=== PATIENT | female | born 1970 | race Caucasian/White ===

== ENCOUNTER 2017-07-18 16:59 | Emergency (ER) | payer OTHER ==
[~2017-07-18] VITALS: Ht 177.8 cm; Wt 108.9 kg
[~2017-07-18 16:59] MED LIST: CEPHALEXIN500 MG PO; NORCO 5-325 TA1 EACH PO; SEPTRA DS TABL1 EACH PO
== END 2017-07-18 18:26 | disposition home or self-care (01) ==
LOC: ED 16:59
DX: J11.1 Influenza due to unidentified influenza virus with other respiratory manifestations (principal); I10 Essential (primary) hypertension; F17.200 Nicotine dependence, unspecified, uncomplicated
CPT/HCPCS: 87502; 99283

== ENCOUNTER 2021-04-05 08:05 | Day surgery (SDC) | payer OTHER ==
[~2021-04-05] VITALS: Ht 175.3 cm; Wt 106.8 kg
[~2021-04-05 08:05] MED LIST changes: +COZAAR100 MG PO; +NORVASC10 MG PO; +OMEPRAZOLE20 MG PO; +WELLBUTRIN XL150 MG PO
--- NOTE | 2021-04-05 14:04 | NUR ---
PATIENT BACK IN DAY SURGERY ROOM FROM PACU. DENIES PAIN. DENIES NAUSEA. VS CHECKED. RIGHT BREAST DRESSING CDI. IV SITE WNL. SCDs ON. PATIENT TOLERATING WATER. GIVEN CHOCOLATE PUDDING. SANDWICH ORDERED. CALL LIGHT WITHIN REACH.
[2021-04-05] MEDS ORDERED: HYDROCODON-ACE1 EAC8 PO (14:10)
--- NOTE | 2021-04-05 14:42 | NUR ---
PATIENT TOLERATED PUDDING AND SANDWICH. PATIENT ASSISTED OOB AND TO BATHROOM. GAIT STEADY. VOID WITHOUT DIFFICULTY. GAIT STEADY BACK TO ROOM. PATIENT GETTING DRESSED INDEPENDENTLY.
--- NOTE | 2021-04-05 15:18 | NUR ---
1502: VS CHECKED. DISCHARGE INSTRUCTIONS GIVEN TO PATIENT. IV DC'D WNL. TIP INTACT. FRIEND HERE TO TAKE PATIENT HOME. PATIENT DISCHARGED TO HOME WITH FRIEND VIA WHEELCHAIR.
--- NOTE | 2021-04-06 06:14 | OR ---
[facility] [address] [place], [place] [address] Signed DATE OF OPERATION: 04/05/2021 SURGEON: Sharee Hand MD PREOPERATIVE DIAGNOSIS: Right breast intraductal papilloma at 7 o'clock position. POSTOPERATIVE DIAGNOSIS: Right breast intraductal papilloma at 7 o'clock position. PROCEDURE: Right breast needle localization excisional biopsy. ESTIMATED BLOOD LOSS: None. INDICATIONS: Jodie is a 50-year-old female asked to see me following a right breast needle biopsy. She had a recent mammogram and was found to have an intraductal papilloma confirmed by her biopsy. It is at the 7:30 position of the right breast. She has had previous bilateral breast reduction surgery back in 1996. She told me her sister was also diagnosed with breast cancer at age 47, remains well to this day. In the office, I explained to Jodie, this is considered a proliferative lesion and therefore, increases her risk of breast cancer 1.5 up to 2 times baseline. In that regard, it needs to be completely excised. I gave her a booklet on breast and breast biopsies in the office. We went through it together in detail. Because this is not palpable, she understands this will require needle localization excisional biopsy. No need for sentinel lymph node biopsy at this time. She understands the nature of the surgery. We reviewed the expected intraop and postop course. She understands there is risk including, but not limited to bleeding, infection, scarring, change in contour of the skin as well as possible need for additional surgery or treatments based on pathologic review. She had expressed understanding and wished to proceed. DESCRIPTION OF PROCEDURE: I met with Jodie in the preop area. She had been to the Radiology Department to have the wire placed. With a nurse present, then we appropriately marked and confirmed the right breast in wire position. After this, Jodie was taken into the operating room and placed in the supine position under general endotracheal tube anesthesia. She was given preoperative antibiotics along with subcutaneous heparin. SCDs were utilized. She was prepped and draped in the usual sterile fashion. I reviewed the radiographic Electronically Signed By: SHAREE HAND MD 04/06/21 0614 PATIENT NAME: JODIE OGDEN OPERATIVE REPORT DATE OF : 72 REPORT #: [id number] PHYSICIAN: SHAREE HAND MD PCP: FRANCISCO GERMAIN PA-C REPORT IS CONFIDENTIAL AND NOT TO BE RELEASED WITHOUT AUTHORIZATION [facility] [address] [place], [place] [address] Signed images. One could easily see a small lesion in the metallic clip next to the wire. We made a curvilinear incision in the lower outer quadrant of the right breast. We went down and around the wire to include the tissue to pass the tip of the wire. The specimen was then appropriately marked with silk sutures. The lesion was sent over to the Radiology Department. The radiologist called to confirm the lesion and the clip was in the specimen. After this, local anesthetic was injected into the operative field. The wound was irrigated and suctioned out until clear. We brought together from the deep tissues with interrupted 3-0 Monocryl sutures. We then brought the dermis back together with interrupted 5-0 subcuticular Monocryl sutures. The skin edges were reapproximated with a running 5-0 fast absorbing plain gut suture. Dry gauze and tape were then applied. After this, Jodie was awakened from her anesthesia, extubated in the OR, and taken to the recovery room in stable condition. Sharee Hand MD ALB/MODL /[id number] cc: NEELAM Morris MD Copies: SHAREE HAND MD ~ Electronically Signed By: SHAREE HAND MD 04/06/21 0614 PATIENT NAME: JODIE OGDEN OPERATIVE REPORT DATE OF : 72 REPORT #: [id number] PHYSICIAN: SHAREE HAND MD PCP: FRANCISCO GERMAIN PA-C REPORT IS CONFIDENTIAL AND NOT TO BE RELEASED WITHOUT AUTHORIZATION
--- NOTE | 2021-04-06 15:48 | EKG ---
[facility] [address] [facility] [place], [place] [address] Signed Normal sinus rhythm Normal ECG No previous ECGs available Confirmed by TAY RANGEL MD ([id number]) on 04/06/2021 3:47:52 PM Electronically Signed By: TAY RANGEL MD 04/06/21 1548 PATIENT NAME: TAYLOR OGDEN Electrocardiogram DATE OF : 72 PHYSICIAN: TAY RANGEL MD REPORT #: [id number] REPORT IS CONFIDENTIAL AND NOT TO BE RELEASED WITHOUT AUTHORIZATION
--- NOTE | 2021-04-07 16:57 | PATH ---
[facility] [address] [place], [place] [address] Signed SPECIMEN(S): A RIGHT BREAST SPECIMEN SOURCE: A. RIGHT BREAST CLINICAL HISTORY: Lesion of right breast, intraductal papilloma FINAL PATHOLOGIC DIAGNOSIS: Breast, right, lumpectomy: - Intraductal papilloma (5 mm in greatest dimension), focally sclerosed; absent at surgical margins. - Fibrocystic changes. - Biopsy site. - Negative for malignancy. NAL:[facility]:C2NR MICROSCOPIC EXAMINATION: Histologic sections of all submitted blocks are examined by light microscopy. These findings, together with the gross examination, support the pathologic diagnosis. GROSS DESCRIPTION: The specimen, labeled "AlizaJodie young," and designated on the requisition "right breast," is received in formalin and consists of 32 gram oriented portion of yellow-wan fibroadipose tissue that is 6.6 x 4.7 x 3.9 cm and has an inserted metal localization wire. A short stitch identifies the superior margin, wire identifies the skin, and a double stitch identifies the deep margin. A portion of a pale pink skin is present measuring 0.4 x 0.3 cm. The specimen is inked as follows: superior - blue; inferior - green; medial - red; lateral - orange; anterior - yellow; and posterior - black. The specimen is serially sectioned from anterior to posterior into 11 slices revealing a 0.7 x 0.6 x 0.5 cm pink soft nodule present in slice 6-7 with an adjacent clip present in slice eight. The nodule is 3.2 cm from the anterior soft tissue margin, 1.7 cm from the posterior soft tissue margin, 1.6 cm from the superior soft tissue margin, 1.4 cm from the inferior soft tissue margin, 0.7 cm from the medial soft tissue margin, and 2.8 cm from the lateral soft tissue margin. Approximately 90% of the remaining specimen is a yellow-wan greasy adipose PATIENT NAME: JODIE OGDEN PATHOLOGY DATE OF : 72 REPORT #: [id number] PHYSICIAN: BELA OATES PCP: FRANCISCO GERMAIN PA-C REPORT IS CONFIDENTIAL AND NOT TO BE RELEASED WITHOUT AUTHORIZATION [facility] [address] [place], [place] [address] Signed tissue and 10% is a white-wan delicate fibrous tissue. The nodule and surrounding fibroadipose tissue are submitted for histologic examination. Band Sawmill Operator sections are submitted in 15 cassettes. Cassette summary: (A1-A2) slice one, anterior soft tissue resection margin with skin, perpendicular (A3-A4) slice five, fibroadipose tissue anterior to nodule (A5-A6) slice six with nodule (A7-A9) slice seven with nodule (A10-A11) slice eight with biopsy cavity clip (A12-A13) slice nine, fibroadipose tissue posterior to nodule (A14-A15) slice 11, posterior soft tissue resection margin, perpendicular. Cold ischemia time: Insufficient data to calculate. Approximate Formalin time: 12-24 hours. FB (under the direct supervision of a pathologist) The Gross Description was prepared using a voice recognition system. The report was reviewed for accuracy; however, sound-alike word errors, addition and/or deletions may occur. If there is any question about this report, please contact Client Services. PERFORMING LABORATORY: The technical component was performed by [facility], [address] [place] [address] (Mechanical And Auto Body Car Checker: Candice Mina MD; CLIA# [id number]). Professional interpretation was performed by [facility], [facility] [place] [facility], [address] [place] [address] (CLIA# [id number]). Diagnostician: Rachana Garcia MD Pathologist Electronically Signed 04/07/2021 Copies: ~ PATIENT NAME: JODIE OGDEN PATHOLOGY DATE OF : 72 REPORT #: [id number] PHYSICIAN: BELA PATHOLOGY PCP: FRANCISCO GERMAIN PA-C REPORT IS CONFIDENTIAL AND NOT TO BE RELEASED WITHOUT AUTHORIZATION
== END 2021-04-05 15:02 | disposition home or self-care (01) ==
LOC: DS 08:05
PROVIDERS: ATTEND Colon & Rectal Surgery
PROC: 0HBT0ZX Excision of Right Breast, Open Approach, Diagnostic (ICD-10-PCS; principal; 2021-04-05)
DX: D24.1 Benign neoplasm of right breast (principal); I10 Essential (primary) hypertension; K44.9 Diaphragmatic hernia without obstruction or gangrene; K21.9 Gastro-esophageal reflux disease without esophagitis; F17.210 Nicotine dependence, cigarettes, uncomplicated; K58.0 Irritable bowel syndrome with diarrhea; G47.33 Obstructive sleep apnea (adult) (pediatric); E66.01 Morbid (severe) obesity due to excess calories; Z68.35 Body mass index [BMI] 35.0-35.9, adult; Z80.3 Family history of malignant neoplasm of breast; Z86.14 Personal history of Methicillin resistant Staphylococcus aureus infection; Z88.8 Allergy status to other drugs, medicaments and biological substances; Z80.0 Family history of malignant neoplasm of digestive organs
CPT/HCPCS: 00404; J0461; J0690; J1100; J1644; J1885; J2250; J2405; J2704; J2765; J3010; J7121

== ENCOUNTER 2021-04-21 08:50 | Day surgery (SDC) | payer OTHER ==
[~2021-04-21] VITALS: Ht 175.3 cm; Wt 103.6 kg
[~2021-04-21 08:50] MED LIST changes: +HYDROCODON-ACE1 EAC8 PO
--- NOTE | 2021-04-21 11:31 | NUR ---
04/21/21 1131 Sun Singh 1127 PATIENT ARRIVES TO PACU SLEEPING ON LEFT SIDE. PATIENT AIRWAY OBSTRUCTING. FOLLOWS COMMANDS TO ROLL TO BACK. HOB ELEVATED. TAKING DEEP BREATHS ON COMMANDS. SATS 100% OR 6 LITERS.
--- NOTE | 2021-04-24 06:52 | OR ---
[facility] [address] [place], [place] [address] Signed DATE OF OPERATION: 04/21/2021 SURGEON: Sharee Hand MD PREOPERATIVE DIAGNOSES: 1. Gastroesophageal reflux disease. 2. Hiatal hernia. 3. Chronic irritable bowel syndrome with alternating constipation and diarrhea. 4. Change in bowel habits with worsening diarrhea. 5. Intermittent rectal bleeding. 6. Paternal grandmother with rectal cancer, age 82. POSTOPERATIVE DIAGNOSES: 1. Small to moderate sized hiatal hernia (38-35 cm). 2. 5 mm polyp at 8 cm. 3. 4 mm polyp at 18 cm/sigmoid colon. 4. Minimal sigmoid diverticulosis. PROCEDURES: 1. Esophagogastroduodenoscopy with YESSI test and biopsies of the duodenum and antrum. 2. Colonoscopy with hot biopsy. ESTIMATED BLOOD LOSS: None. INDICATIONS: Jodie is a 50-year-old female, who I have helped previously. More recently, she had been asked to see me for upper and lower endoscopy. She talked about having irritable bowel syndrome back when she was a teenager. She said it is mostly diarrhea, but sometimes, it is constipation. She remembers having upper and lower endoscopy when she was 19 years of age. More recently, she feels like her bowel habits have changed with increasing diarrhea. She has been seeing some intermittent blood in the stool as well. She remembers her paternal grandmother was diagnosed with rectal cancer at age 82. Unfortunately, her grandmother just a few days later from a stroke. She is also known to have acid reflux associated with a hiatal hernia since she was a teenager. She went back on Prilosec through the help of her primary care provider. She now feels much better. Given her very full round face and heavy neck and chest and abdomen, we asked that an anesthesia provider help us with some increased monitoring and sedation with propofol. That proved to be a garcia decision also with her history of sleep apnea and the inability to tolerate the CPAP mask. She had expressed understanding and wished to Electronically Signed By: SHAREE HAND MD 04/24/21 0652 PATIENT NAME: JODIE OGDEN OPERATIVE REPORT DATE OF : 72 REPORT #: [id number] PHYSICIAN: SHAREE HAND MD PCP: FRANCISCO GERMAIN PA-C REPORT IS CONFIDENTIAL AND NOT TO BE RELEASED WITHOUT AUTHORIZATION [facility] [address] [place] [address] Signed proceed. She understands there is risk including, but not limited to gas, bloating, crampy abdominal pain, bleeding, perforation requiring surgery, and misdiagnosis. PROCEDURE IN DETAIL: Jodie was taken into the endoscopy suite and placed in the supine semi-recumbent position. A bite block was utilized for the case. She was given IV sedation with propofol per our nurse and taxi instructor bus trolley. The adult gastroscope was introduced and advanced under direct visualization out into the third portion of the duodenum without difficulty. We took a biopsy of the duodenum because of the history of diarrhea. The duodenum and pyloric channel were unremarkable. Overall, the stomach was unremarkable. We went ahead and took a biopsies of the antrum for YESSI test as well as pathologic review. Upon retroflexion of scope, we could easily see her small to moderate sized hiatal hernia. The scope was withdrawn up to the area of the GE junction, which was compliant without stricture. No evidence of any Obi ulcer or Peg-Marion tear. The hiatal hernia measured out 38-35 cm. There was minimal disruption to the Z-line. No Bustamante mucosa. The distal, middle, and upper esophagus were unremarkable. After this, the gas was suctioned out and the gastroscope removed. Jodie tolerated the upper endoscopy quite well. Jodie was then rotated into the left lateral decubitus position. She was maintained on IV sedation with propofol per our nurse and taxi instructor bus trolley. A digital rectal exam was performed and this was unremarkable. The adult colonoscope was introduced and advanced all around into the cecum under direct visualization the camera without difficulty. She needed just a little abdominal compression in order to advance the scope. Overall, her prep was good. We could easily see the appendiceal orifice and the ileocecal valve. The scope was then slowly withdrawn. We took random biopsies in the right transverse and sigmoid colon due to the history of diarrhea. We also removed the two polyps mentioned above with the help of hot biopsy forceps. She also has a few diverticula in the sigmoid colon. They were minimal to moderate in size, few in number, and scattered about. Once in the rectum, the scope was retroflexed and there was no additional pathology noted above the anal canal. After this, the gas was suctioned out and the colonoscope removed. Jodie tolerated the lower endoscopy quite well. RECOMMENDATIONS: I will see Jodie back in my office in the next 7-14 days to review her results as well as the results of the right breast biopsy. Sharee Hand MD Electronically Signed By: SHAREE HAND MD 04/24/21 0652 PATIENT NAME: JODIE OGDEN OPERATIVE REPORT DATE OF : 72 REPORT #: [id number] PHYSICIAN: SHAREE HAND MD PCP: FRANCISCO GERMAIN PA-C REPORT IS CONFIDENTIAL AND NOT TO BE RELEASED WITHOUT AUTHORIZATION [address] [place] [address] Signed ALB/MODL /[id number] cc: DO Francisco Tay PA-C Copies: BARBY CARNEY DO ~ Electronically Signed By: SHAREE HAND MD 04/24/21 0652 PATIENT NAME: JODIE OGDEN OPERATIVE REPORT DATE OF : 72 REPORT #: [id number] PHYSICIAN: SHAREE HAND MD PCP: FRANCISCO GERMAIN PA-C REPORT IS CONFIDENTIAL AND NOT TO BE RELEASED WITHOUT AUTHORIZATION
--- NOTE | 2021-04-27 15:11 | PATH ---
[facility] [address] [facility] [place] [place] [address] Signed SPECIMEN(S): A DUODENAL BIOPSY SPECIMEN(S): B ANTRUM/PYLORUS BIOPSY SPECIMEN(S): C COLON POLYP AT 8 CM SPECIMEN(S): D RANDOM BIOPSY SPECIMEN(S): E DISTAL SIGMOID POLYP AT 18 CM SPECIMEN SOURCE: A. DUODENAL BIOPSY B. ANTRUM/PYLORUS BIOPSY C. COLON POLYP AT 8 CM D. RANDOM BIOPSY E. DISTAL SIGMOID POLYP AT 18 CM CLINICAL HISTORY: Esophagogastroduodenoscopy/colonoscopy. Pre: Hiatal hernia, rectal bleeding, diarrhea, IBS, family history of colon cancer in mother. Postop: Hiatal hernia, rectal and colon polyps, diverticulosis. MICROSCOPIC DESCRIPTION: Histologic sections of all submitted blocks are examined by light microscopy. These findings, together with the gross examination, support the pathologic diagnosis. FINAL PATHOLOGIC DIAGNOSIS: A. Duodenum, biopsy: - No significant histopathology. B. Stomach, antrum/pylorus, biopsy: - No significant histopathologic alterations. C. Colon, 8 cm, polypectomy: - Hyperplastic polyp, one fragment. - Two additional colonic epithelial fragments demonstrating benign intramucosal lymph nodes are identified. D. Colon, random biopsies: - No significant histopathology. E. Colon, distal sigmoid, 18 cm, polypectomy: - Hyperplastic polyp. - There is no evidence of dysplasia or malignancy. COMMENT: Regarding specimen A, the sections from the duodenal biopsy show portions of duodenal mucosa with long finger-like villi. There is no villous atrophy, crypt hyperplasia or intraepithelial PATIENT NAME: TAYLOR OGDEN PATHOLOGY DATE OF : 72 REPORT #: [id number] PHYSICIAN: BELA OATES PCP: FRANCISCO GERMAIN PA-C REPORT IS CONFIDENTIAL AND NOT TO BE RELEASED WITHOUT AUTHORIZATION [facility] [address] [place], [place] [address] Signed lymphocytosis, making a diagnosis of celiac disease unlikely. There is no evidence of peptic duodenitis, microorganisms, abnormal infiltrates or neoplasia. Regarding specimen B, the sections through the gastric biopsies show fragments of histologically unremarkable antral mucosa. There is no evidence of acute or chronic inflammation. There is no evidence of H. pylori, intestinal metaplasia, abnormal infiltrates or neoplasia. Regarding specimen D, the sections from the specimen contain architecturally normal colonic mucosa without crypt distortion. There is no acute or chronic inflammation. There is no evidence of microscopic colitis. There are no abnormal organisms or infiltrates. There are no polyps or neoplasms. TWK:emh:C2NR GROSS DESCRIPTION: Five specimens are received in five containers, labeled "CH." A. The specimen, labeled "CH, 1," and designated on the requisition "duodenum," is received in formalin and consists of one wan soft tissue fragment that measures 0.3 cm in greatest dimension. The specimen is entirely submitted in cassette (A1). B. The specimen, labeled "CH, 2," and designated on the requisition "antrum/pylorus," is received in formalin and consists of two wan soft tissue fragments that measure 0.3 cm in greatest dimension. The specimen is entirely submitted in cassette (B1). C. The specimen, labeled "CH, 3," and designated on the requisition "colon polyp at 8 cm," is received in formalin and consists of three wan soft tissue fragments that measure 0.3 cm in greatest dimension. The specimen is entirely submitted in cassette (C1). D. The specimen, labeled "CH, 4," and designated on the requisition "random," is received in formalin and consists of three wan soft tissue fragments that measure 0.3 cm in greatest dimension. The specimen is entirely submitted in cassette (D1). E. The specimen, labeled "CH, 5," and designated on the requisition "sigmoid polyp at 18 cm," is received in formalin and consists of one wan soft tissue fragment that measures 0.3 cm in greatest dimension. The specimen is entirely submitted in cassette (E1). AT (under the direct supervision of a pathologist) The Gross Description was prepared using a voice recognition system. The report was reviewed for accuracy; however, sound-alike word errors, addition and/or deletions may occur. If there is any PATIENT NAME: TAYLOR OGDEN PATHOLOGY DATE OF : 72 REPORT #: [id number] PHYSICIAN: BELA OATES PCP: FRANCISCO GERMAIN PA-C REPORT IS CONFIDENTIAL AND NOT TO BE RELEASED WITHOUT AUTHORIZATION [address] [address] Signed question about this report, please contact Client Services. PERFORMING LABORATORY: The technical component was performed by [facility], [address] [place] [address] (Concrete Block Layer: Candice Mina MD; CLIA# [id number]). The professional interpretation was performed by [facility], [facility], [address] [place] [address]. Diagnostician: Gerson Gordon MD Pathologist Electronically Signed 04/27/2021 Copies: ~ PATIENT NAME: TAYLOR OGDEN PATHOLOGY DATE OF : 72 REPORT #: [id number] PHYSICIAN: BELA PATHOLOGY PCP: FRANCISCO GERMAIN PA-C REPORT IS CONFIDENTIAL AND NOT TO BE RELEASED WITHOUT AUTHORIZATION
== END 2021-04-21 11:57 | disposition home or self-care (01) ==
LOC: OPS 08:50 → DS 08:50 → OPS 10:25
PROVIDERS: ATTEND Colon & Rectal Surgery
PROC: 0DBL8ZZ Excision of Transverse Colon, Via Natural or Artificial Opening Endoscopic (ICD-10-PCS; 2021-04-21)
PROC: 0DB68ZZ Excision of Stomach, Via Natural or Artificial Opening Endoscopic (ICD-10-PCS; principal; 2021-04-21 10:25)
PROC: 0DBN8ZZ Excision of Sigmoid Colon, Via Natural or Artificial Opening Endoscopic (ICD-10-PCS; 2021-04-21 10:25)
DX: K58.0 Irritable bowel syndrome with diarrhea (principal); K62.5 Hemorrhage of anus and rectum; K44.9 Diaphragmatic hernia without obstruction or gangrene; K63.5 Polyp of colon; K57.30 Diverticulosis of large intestine without perforation or abscess without bleeding; K21.9 Gastro-esophageal reflux disease without esophagitis; G47.33 Obstructive sleep apnea (adult) (pediatric); I10 Essential (primary) hypertension; F17.210 Nicotine dependence, cigarettes, uncomplicated; Z80.0 Family history of malignant neoplasm of digestive organs
CPT/HCPCS: 76098; 83009; J2704

== ENCOUNTER 2023-06-25 07:49 | Day surgery (SDC) | payer OTHER ==
[2023-06-24 15:54] VITALS: BP 119/101
[~2023-06-25] VITALS: Ht 175.3 cm; Wt 120.5 kg
--- NOTE | ~2023-06-25 | OR ---
[facility] [address] [place] [id number] Draft DATE OF OPERATION: 06/25/2023 SURGEON: Barby Jaeger DO PREOPERATIVE DIAGNOSES: 1. Abnormal uterine bleeding. 2. Submucosal fibroid. 3. Arcuate uterus. 4. Type 2 diabetes. POSTOPERATIVE DIAGNOSES: 1. Abnormal uterine bleeding. 2. Endometrial polyp. 3. Intramural fibroid. 4. Arcuate uterus. 5. Type 2 diabetes. PROCEDURES PERFORMED: 1. Hysteroscopy, dilation and curettage. 2. Polypectomy. ANESTHESIA: MAC. ESTIMATED BLOOD LOSS: 10 mL. FLUID DEFICIT: 150 mL. SPECIMENS: Endometrial polyps and curettings. FINDINGS: Normal external genitalia with normal clitoris, urethral meatus, bilateral [place]'s, Bartholin's glands. Normal vagina and cervix. On hysteroscopy, endocervical and endometrial polyps noted, she got an arcuate uterus and no submucosal fibroids were noted. COMPLICATIONS: PATIENT NAME: TAYLOR MOE OPERATIVE REPORT DATE OF : 72 REPORT #: [id number] PHYSICIAN: BARBY JAEGER (LAINA) PCP: FRANCISCO GERMAIN PA-C REPORT IS CONFIDENTIAL AND NOT TO BE RELEASED WITHOUT AUTHORIZATION [facility] [address] [place] [id number] Draft None. INDICATIONS: Mrs. Moe is a very pleasant 52-year-old, perimenopausal woman, who presents with abnormal uterine bleeding and submucosal fibroid on ultrasound. Recommended hysteroscopy, D and C, possible myomectomy. She reports that unable to undergo an office procedure due to her anxiety, requested hysteroscopy, D and C that to be performed in the OR. Risks, benefits, and alternatives were discussed in detail with the patient. The patient understands and wishes to proceed with the procedure. DESCRIPTION OF PROCEDURE: The patient was taken to the OR, where time-out was performed to confirm correct patient, correct procedure. MAC anesthesia was adequately established. The patient was prepped and draped in the dorsal lithotomy position with feet in Yellofin stirrups. ICPs were on and running. No preoperative antibiotics or heparin were indicated. The bladder was drained. A weighted speculum was placed in vagina. The anterior lip of the cervix was grasped with Allis clamp. Cervix was gently dilated using Hegar dilators to #7. An operative hysteroscope was then placed in the cervical os and advanced under direct visualization into the uterine cavity. Endocervical polyp was noted. The uterine cavity was gently entered and arcuate configuration was identified and confirmed. Scattered endometrial polyps were noted. The MyoSure Lite device was selected and introduced and circumferential curettage and polypectomy were performed. The camera was slowly withdrawn and endocervical polyp was also excised. The camera was removed, Allis clamp was removed and bleeding was noted to be scant. The patient was then taken to PACU in good and stable condition. Sponge, needle, and instrument count was correct x2 at the end of the procedure. DO YISSEL Tay/MANNIE /[id number] Copies: PATIENT NAME: TAYLOR MOE OPERATIVE REPORT DATE OF : 72 REPORT #: [id number] PHYSICIAN: BARBY JAEGER) PCP: FRANCISCO GERMAIN PA-C REPORT IS CONFIDENTIAL AND NOT TO BE RELEASED WITHOUT AUTHORIZATION [address] [place], [place] [address] Draft ~ PATIENT NAME: TAYLOR MOE OPERATIVE REPORT DATE OF : 72 REPORT #: [id number] PHYSICIAN: BARBY JAEGER) PCP: FRANCISCO GERMAIN PA-C REPORT IS CONFIDENTIAL AND NOT TO BE RELEASED WITHOUT AUTHORIZATION
[~2023-06-25 07:49] MED LIST changes: +TOPROL XL100 MG PO; +VITAMIN D21250 MCG PO
[2023-06-25 08:22] VITALS: BP 140/84
[2023-06-25 10:53] VITALS: BP 144/96
--- NOTE | 2023-06-25 11:19 | NUR ---
06/25/23 1119 Lindsay Tierney 1020 PT ARRIVED IN PACU SLEEPY. 1045 DR AT BEDSIDE. ALL QUESTIONS ANSWERED. 1050 SITTING AT BEDSIDE GETTING DRESSED. 1100 DC INSTRUCTIONS GIVEN. 1105 LEFT VIA W/C.
--- NOTE | 2023-06-27 14:56 | PATH ---
[facility] [address], [place] [address] Signed SPECIMEN(S): A ENDOMETRIAL CURETTINGS POLYP SPECIMEN SOURCE: A. ENDOMETRIAL CURETTINGS POLYP CLINICAL HISTORY: Abnormal uterine bleeding, uterine fibroids. FINAL PATHOLOGIC DIAGNOSIS: Endometrial curetting and polyp: - Polypoid endometrium with proliferative features, negative for hyperplasia or atypia. JVR:elizabeth MICROSCOPIC EXAMINATION: Histologic sections of all submitted blocks are examined by light microscopy. These findings, together with the gross examination, support the pathologic diagnosis. GROSS DESCRIPTION: The specimen, labeled and designated "[place], endometrial curettings, polyp," is received in formalin and consists of multiple fragments of red-brown to pink-wan soft tissue (2.5 x 1.7 x 0.3 cm in aggregate). The specimen is submitted entirely in cassette (A1). VB (under the direct supervision of a pathologist) The Gross Description was prepared using a voice recognition system. The report was reviewed for accuracy; however, sound-alike word errors, addition and/or deletions may occur. If there is any question about this report, please contact Client Services. PERFORMING LABORATORY: Technical component was performed by [facility], [address] [place] [id number] (CLIA# [id number]). Professional interpretation was performed by [facility] - [facility], [address] [place] [id number] (CLIA#: [id number]). Diagnostician: Ryan Erickson MD Pathologist Electronically Signed 06/27/2023 PATIENT NAME: TAYLOR OGDEN PATHOLOGY DATE OF : 72 REPORT #: [id number] PHYSICIAN: BELA OATES PCP: FRANCISCO GERMAIN PA-C REPORT IS CONFIDENTIAL AND NOT TO BE RELEASED WITHOUT AUTHORIZATION [address] [place], [place] [address] Signed Copies: ~ PATIENT NAME: TAYLOR OGDEN PATHOLOGY DATE OF : 72 REPORT #: [id number] PHYSICIAN: BELA OATES PCP: FRANCISCO GERMAIN PA-C REPORT IS CONFIDENTIAL AND NOT TO BE RELEASED WITHOUT AUTHORIZATION
== END 2023-06-25 11:05 | disposition home or self-care (01) ==
LOC: DS 07:49
PROVIDERS: ATTEND Obstetrics & Gynecology
PROC: 0UDB8ZZ Extraction of Endometrium, Via Natural or Artificial Opening Endoscopic (ICD-10-PCS; principal; 2023-06-25 10:00)
DX: D25.1 Intramural leiomyoma of uterus (principal); D25.0 Submucous leiomyoma of uterus; E11.9 Type 2 diabetes mellitus without complications; N93.9 Abnormal uterine and vaginal bleeding, unspecified; F17.210 Nicotine dependence, cigarettes, uncomplicated; N84.0 Polyp of corpus uteri
CPT/HCPCS: 00952; 84703; J0131; J1885; J2001; J2250; J2405; J2704; J3490; J7121